=== PATIENT | female | born 1930 | race Caucasian/White ===

== ENCOUNTER → 2017-10-16 | Outpatient (CLI) | payer MEDICARE ==
[2017-10-16 08:07] LABS: ALBUMIN 4.1 g/dL (3.5-5.0); BUN/CREATININE RATIO 18.1 (6.0-26.0); POTASSIUM 4.3 mmol/L (3.6-5.0); TOTAL BILIRUBIN 0.5 mg/dL (0.2-1.3); TOTAL PROTEIN 7.3 g/dL (6.3-8.2)
== END ==
LOC: LAB 07:38
PROVIDERS: Family Medicine
DX: I10 Essential (primary) hypertension (principal); M19.90 Unspecified osteoarthritis, unspecified site; E78.00 Pure hypercholesterolemia, unspecified; R09.81 Nasal congestion

== ENCOUNTER → 2017-11-12 | Outpatient (CLI) | payer MEDICARE ==
[2017-11-12 12:09] LABS: URINE APPEARANCE CLOUDY; URINE COLOR YELLOW
[2017-11-12 12:10] LABS: URINE BILIRUBIN NEGATIVE (NEGATIVE); URINE BLOOD 50 ery/uL (NEGATIVE); URINE GLUCOSE NEGATIVE (NEGATIVE); URINE KETONE NEGATIVE (NEGATIVE); URINE LEUKOCYTE ESTERASE 2+ (NEGATIVE); URINE NITRATE POSITIVE (NEGATIVE); URINE PROTEIN(semi-quant) TRACE mg/dL (NEGATIVE); URINE UROBILINOGEN NORMAL (NORMAL); URINE WBC >50 /hpf (0-3)
== END ==
LOC: LAB 11:04
PROVIDERS: Family Medicine
DX: N39.0 Urinary tract infection, site not specified (principal); J30.9 Allergic rhinitis, unspecified; R09.81 Nasal congestion

== ENCOUNTER → 2017-11-20 | Outpatient (CLI) | payer MEDICARE | LOC: LAB 11:12 | DX: N39.0 Urinary tract infection, site not specified (principal); R10.9 Unspecified abdominal pain ==

== ENCOUNTER → 2017-11-28 | Outpatient (CLI) | payer MEDICARE | LOC: RAD 10:34 | PROVIDERS: Family Medicine | DX: S32.030A Wedge compression fracture of third lumbar vertebra, initial encounter for closed fracture (principal); N39.0 Urinary tract infection, site not specified; M25.551 Pain in right hip ==

== ENCOUNTER → 2018-02-02 | Outpatient (CLI) | payer MEDICARE | LOC: LAB 16:15 | DX: R30.0 Dysuria (principal); Z87.440 Personal history of urinary (tract) infections ==

== ENCOUNTER → 2018-02-09 | Outpatient (CLI) | payer MEDICARE ==
[2018-02-09 12:10] LABS: URINE APPEARANCE CLEAR; URINE COLOR YELLOW
[2018-02-09 12:11] LABS: URINE BILIRUBIN NEGATIVE (NEGATIVE); URINE BLOOD TRACE (NEGATIVE); URINE GLUCOSE NEGATIVE (NEGATIVE); URINE KETONE NEGATIVE (NEGATIVE); URINE LEUKOCYTE ESTERASE NEGATIVE (NEGATIVE); URINE NITRATE NEGATIVE (NEGATIVE); URINE PROTEIN(semi-quant) TRACE mg/dL (NEGATIVE); URINE UROBILINOGEN NORMAL (NORMAL)
== END ==
LOC: LAB 11:20
PROVIDERS: Family Medicine
DX: R31.9 Hematuria, unspecified (principal); R30.0 Dysuria; Z87.440 Personal history of urinary (tract) infections

== ENCOUNTER → 2018-05-28 | Outpatient (CLI) | payer MEDICARE | LOC: LAB 10:24 | DX: N39.0 Urinary tract infection, site not specified (principal) ==

== ENCOUNTER → 2018-06-03 | Outpatient (CLI) | payer MEDICARE | LOC: MAMMO 10:33 | DX: Z12.31 Encounter for screening mammogram for malignant neoplasm of breast (principal) ==

== ENCOUNTER → 2018-06-04 | Outpatient (CLI) | payer MEDICARE ==
[2018-06-04 09:51] LABS: URINE APPEARANCE HAZY; URINE BILIRUBIN NEGATIVE (NEGATIVE); URINE BLOOD 50 ery/uL (NEGATIVE); URINE COLOR YELLOW; URINE GLUCOSE NEGATIVE (NEGATIVE); URINE KETONE NEGATIVE (NEGATIVE); URINE LEUKOCYTE ESTERASE NEGATIVE (NEGATIVE); URINE NITRATE NEGATIVE (NEGATIVE); URINE PROTEIN(semi-quant) TRACE mg/dL (NEGATIVE); URINE UROBILINOGEN NORMAL (NORMAL)
== END ==
LOC: LAB 08:59
PROVIDERS: Family Medicine
DX: R35.0 Frequency of micturition (principal); N39.0 Urinary tract infection, site not specified; Z87.898 Personal history of other specified conditions

== ENCOUNTER → 2018-10-05 | Outpatient (CLI) | payer MEDICARE ==
[2018-10-05 10:04] LABS: URINE APPEARANCE CLOUDY; URINE COLOR ORANGE; URINE MUCUS PRESENT (NOT PRESENT); URINE WBC >50 /hpf (0-3)
== END ==
LOC: LAB 09:24
PROVIDERS: Family Medicine
DX: R30.9 Painful micturition, unspecified (principal); B96.1 Klebsiella pneumoniae [K. pneumoniae] as the cause of diseases classified elsewhere; R35.0 Frequency of micturition

== ENCOUNTER → 2018-10-14 | Outpatient (CLI) | payer MEDICARE ==
[2018-10-14 09:07] LABS: ALBUMIN 4.8 g/dL (3.5-5.0); CALCIUM 10.5 mg/dL (8.4-10.2); POTASSIUM 4.6 mmol/L (3.6-5.0); TOTAL BILIRUBIN 0.6 mg/dL (0.2-1.3); TOTAL PROTEIN 7.9 g/dL (6.3-8.2)
[2018-10-14 10:33] LABS: URINE APPEARANCE CLEAR; URINE BILIRUBIN NEGATIVE (NEGATIVE); URINE BLOOD 50 ery/uL (NEGATIVE); URINE COLOR YELLOW; URINE GLUCOSE NEGATIVE (NEGATIVE); URINE KETONE NEGATIVE (NEGATIVE); URINE LEUKOCYTE ESTERASE NEGATIVE (NEGATIVE); URINE MUCUS PRESENT (NOT PRESENT); URINE NITRATE NEGATIVE (NEGATIVE); URINE PROTEIN(semi-quant) TRACE mg/dL (NEGATIVE); URINE UROBILINOGEN NORMAL (NORMAL)
== END ==
LOC: LAB 08:31
PROVIDERS: Family Medicine
DX: N30.00 Acute cystitis without hematuria (principal); I10 Essential (primary) hypertension; E78.00 Pure hypercholesterolemia, unspecified

== ENCOUNTER 2019-01-29 11:54 | Emergency (ER) | payer MEDICARE ==
[~2019-01-29] VITALS: Ht 157.5 cm; Wt 53.2 kg
[2019-01-29] MEDS ORDERED: LISINOPRIL10 MG PO (12:16)
[2019-01-29] MEDS ORDERED: FLUTICASON0.05 MG/AC NS (12:16)
[2019-01-29] MEDS ORDERED: ATORVASTATIN CA40 MG PO (12:16)
[2019-01-29] MEDS ORDERED: PRILOSEC OTC20 MG PO (12:26)
[2019-01-29] MEDS ORDERED: B-121000 MCG PO (12:28)
[2019-01-29] MEDS ORDERED: STOOL SOFTENER1 TAB PO (12:28)
[2019-01-29] MEDS ORDERED: MULTIVITAMIN1 SGL PO (12:30)
[2019-01-29] MEDS ORDERED: CALCIUM 600600 MG PO (12:30)
[2019-01-29 14:00] LABS: EOS % 0.3 % (1.0-5.0); HEMATOCRIT 33.9 % (37.0-47.0); HEMOGLOBIN 10.9 g/dL (12.5-16.0); LYMPH# 1.2 (1.50-4.00); MEAN CELL VOLUME 100 fl (78-100); MEAN CORPUSCULAR HEMOGLOBIN 32 pg (27-31); MEAN CORPUSCULAR HGB CONC 32 g/dL (33-37); MONO # 0.6 (0.20-0.80); NEU # 5.7 (1.40-6.50); PLATELET COUNT 267 K/mm3 (130-400); RED BLOOD COUNT 3.38 M/mm3 (4.10-5.30); RED CELL DISTRIBUTION WIDTH 12.4 % (11.5-14.5); WHITE BLOOD COUNT 7.5 K/mm3 (4.8-10.8)
[2019-01-29 14:12] LABS: ALBUMIN 4.3 g/dL (3.4-4.8)
[2019-01-29 14:13] LABS: CALCIUM 10.4 mg/dL (8.3-10.5); PROTHROMBIN TIME 10.6 SECONDS (9.0-12.0)
[2019-01-29 14:15] LABS: GLUCOSE 96 mg/dL (65-105); TOTAL PROTEIN 7.5 g/dL (6.2-8.1)
[2019-01-29 14:16] LABS: CARBON DIOXIDE 24 mmol/L (23-31); TOTAL BILIRUBIN 0.3 mg/dL (0.2-1.2)
[2019-01-29 14:20] LABS: AST-SGOT 26 U/L (5-34)
[2019-01-29 14:22] LABS: ALT/SGPT 26 U/L (0-55)
[2019-01-29 14:28] LABS: TROPONIN-I < 0.03 ng/mL (<0.030)
[2019-01-29 14:49] LABS: POTASSIUM 4.2 mmol/L (3.5-5.1); SODIUM 137 mmol/L (136-145)
[2019-01-29] MEDS ORDERED: NORCO 325 MG-51 TA1 PO (15:25)
[2019-01-29 15:35] VITALS: BP 146/67
[2019-01-29 17:26] LABS: URINE APPEARANCE HAZY; URINE COLOR YELLOW
[2019-01-29 17:27] LABS: PH-URINE 5.5 (5.0 - 8.0); URINE BILIRUBIN NEGATIVE (NEGATIVE); URINE BLOOD 50 ery/uL (NEGATIVE); URINE GLUCOSE NEGATIVE (NEGATIVE); URINE KETONE NEGATIVE (NEGATIVE); URINE NITRATE NEGATIVE (NEGATIVE); URINE PROTEIN(semi-quant) TRACE mg/dL (NEGATIVE); URINE UROBILINOGEN NORMAL (NORMAL)
[2019-01-29 17:28] LABS: URINE LEUKOCYTE ESTERASE 1+ (NEGATIVE); URINE WBC 16-30 /hpf (0-3)
== END 2019-01-29 15:37 | disposition home or self-care (01) ==
LOC: ED 11:54
PROVIDERS: Nurse Practitioner Primary Care
DX: S32.591A Other specified fracture of right pubis, initial encounter for closed fracture (principal); I10 Essential (primary) hypertension; K21.9 Gastro-esophageal reflux disease without esophagitis; Z79.51 Long term (current) use of inhaled steroids; W01.0XXA Fall on same level from slipping, tripping and stumbling without subsequent striking against object, initial encounter; Y92.007 Garden or yard of unspecified non-institutional (private) residence as the place of occurrence of the external cause

== ENCOUNTER → 2019-02-15 | Outpatient (CLI) | payer MEDICARE ==
[2019-01-29 15:35] VITALS: BP 146/67
[~2019-02-15] MED LIST: ACETAMINOPHEN325 M1 PO; ATORVASTATIN CA40 MG PO; B-121000 MCG PO; BACTRIM DS 8001 TAB PO; CALCIUM500 M1; CRANBERRY500 M3; FLUTICASON0.05 MG/AC NS; GOOD NEIGHBOR200 M3 PO; LISINOPRIL10 MG PO; MULTI-VITAMINS1 TA1 PO; NEXIUM 24HR20 M2 PO; NORCO 325 MG-51 TA1 PO; PRILOSEC OTC20 MG PO; STOOL SOFTENER1 TAB PO
[2019-02-15 13:55] LABS: URINE APPEARANCE HAZY; URINE COLOR YELLOW
[2019-02-15 13:56] LABS: URINE BILIRUBIN NEGATIVE (NEGATIVE); URINE BLOOD TRACE (NEGATIVE); URINE GLUCOSE NEGATIVE (NEGATIVE); URINE KETONE NEGATIVE (NEGATIVE); URINE LEUKOCYTE ESTERASE 1+ (NEGATIVE); URINE NITRATE NEGATIVE (NEGATIVE); URINE PROTEIN(semi-quant) TRACE mg/dL (NEGATIVE); URINE UROBILINOGEN NORMAL (NORMAL); URINE WBC >50 /hpf (0-3)
[2019-02-15 13:57] LABS: URINE MUCUS PRESENT (NOT PRESENT)
== END ==
LOC: LAB 13:19
PROVIDERS: Family Medicine
DX: R30.9 Painful micturition, unspecified (principal)

== ENCOUNTER → 2019-02-22 | Outpatient (CLI) | payer MEDICARE ==
[2019-01-29 15:35] VITALS: BP 146/67
[2019-02-22 14:21] LABS: URINE APPEARANCE HAZY; URINE BILIRUBIN NEGATIVE (NEGATIVE); URINE BLOOD NEGATIVE (NEGATIVE); URINE COLOR YELLOW; URINE GLUCOSE NEGATIVE (NEGATIVE); URINE KETONE NEGATIVE (NEGATIVE); URINE LEUKOCYTE ESTERASE NEGATIVE (NEGATIVE); URINE NITRATE NEGATIVE (NEGATIVE); URINE PROTEIN(semi-quant) TRACE mg/dL (NEGATIVE); URINE UROBILINOGEN NORMAL (NORMAL)
== END ==
LOC: LAB 13:14
PROVIDERS: Family Medicine
DX: N39.0 Urinary tract infection, site not specified (principal)

== ENCOUNTER 2019-02-24 12:29 | Emergency (ER) | payer MEDICARE ==
[~2019-02-24 12:29] MED LIST changes: -ACETAMINOPHEN325 M1 PO; -BACTRIM DS 8001 TAB PO; -CRANBERRY500 M3; -GOOD NEIGHBOR200 M3 PO; -NEXIUM 24HR20 M2 PO
[2019-02-24] MEDS ORDERED: BACTRIM DS 8001 TAB PO (13:15)
[2019-02-24] MEDS ORDERED: NEXIUM 24HR20 M2 PO (13:16)
[2019-02-24] MEDS ORDERED: ACETAMINOPHEN325 M1 PO (13:17)
[2019-02-24] MEDS ORDERED: CRANBERRY500 M3 (13:18)
[2019-02-24] MEDS ORDERED: GOOD NEIGHBOR200 M3 PO (13:20)
[2019-02-24 13:43] LABS: URINE APPEARANCE CLEAR; URINE BILIRUBIN NEGATIVE (NEGATIVE); URINE BLOOD 50 ery/uL (NEGATIVE); URINE COLOR YELLOW; URINE GLUCOSE NEGATIVE (NEGATIVE); URINE KETONE NEGATIVE (NEGATIVE); URINE LEUKOCYTE ESTERASE NEGATIVE (NEGATIVE); URINE MUCUS PRESENT (NOT PRESENT); URINE NITRATE NEGATIVE (NEGATIVE); URINE PROTEIN(semi-quant) TRACE mg/dL (NEGATIVE); URINE UROBILINOGEN NORMAL (NORMAL)
[2019-02-24 14:06] VITALS: BP 122/56
== END 2019-02-24 14:06 | disposition other institution (70) ==
LOC: ED 12:29
PROVIDERS: Physician Assistant
DX: E87.5 Hyperkalemia (principal); N28.9 Disorder of kidney and ureter, unspecified; E86.0 Dehydration; M25.552 Pain in left hip; I10 Essential (primary) hypertension; Z90.710 Acquired absence of both cervix and uterus; Z96.651 Presence of right artificial knee joint; Z79.51 Long term (current) use of inhaled steroids
CPT/HCPCS: J2405

== ENCOUNTER 2019-02-24 13:26 | Inpatient (IN) | payer MEDICARE ==
[~2019-02-24] VITALS: Ht 154.9 cm; Wt 50.8 kg
[~2019-02-24 13:26] MED LIST changes: +ACETAMINOPHEN325 M1 PO; +BACTRIM DS 8001 TAB PO; +CRANBERRY500 M3; +GOOD NEIGHBOR200 M3 PO; +NEXIUM 24HR20 M2 PO
[2019-02-24 14:42] VITALS: BP 122/56
[2019-02-24 14:44] VITALS: BP 122/56
[2019-02-24 19:01] VITALS: BP 112/67
[2019-02-24 23:30] VITALS: BP 126/67
[2019-02-25] VITALS (9 sets, daily range): BP systolic 93–115; BP diastolic 45–61
[2019-02-25 06:30] LABS: CALCIUM 8.9 mg/dL (8.3-10.5)
[2019-02-26 03:07] VITALS: BP 91/46
[2019-02-26 06:28] VITALS: BP 105/60
[2019-02-26 08:04] LABS: POTASSIUM 4.8 mmol/L (3.5-5.1)
[2019-02-26 08:05] LABS: CALCIUM 8.8 mg/dL (8.3-10.5)
[2019-02-26 11:21] VITALS: BP 111/63
[2019-02-26 15:00] VITALS: BP 116/63
[2019-02-26 19:07] VITALS: BP 101/57
[2019-02-26 22:32] VITALS: BP 147/70
[2019-02-27 02:42] VITALS: BP 110/67
[2019-02-27 06:04] VITALS: BP 121/72
[2019-02-27 10:51] VITALS: BP 106/61
[2019-02-27 15:15] VITALS: BP 100/59
[2019-02-27 18:53] VITALS: BP 130/76
[2019-02-27 23:30] VITALS: BP 100/63
[2019-02-28] VITALS (7 sets, daily range): BP systolic 95–145; BP diastolic 57–82
[2019-03-01] VITALS (8 sets, daily range): BP systolic 107–124; BP diastolic 63–74
[2019-03-01 09:42] LABS: EOS # 0.1 (0.04-0.40); EOS % 1.4 % (1.0-5.0); HEMATOCRIT 31.1 % (37.0-47.0); HEMOGLOBIN 9.7 g/dL (12.5-16.0); LYMPH# 0.9 (1.50-4.00); MEAN CELL VOLUME 100 fl (78-100); MEAN CORPUSCULAR HEMOGLOBIN 31 pg (27-31); MEAN CORPUSCULAR HGB CONC 31 g/dL (33-37); MEAN PLATELET VOLUME 9.5 fl (7.4-10.4); MONO # 0.5 (0.20-0.80); NEU # 5.5 (1.40-6.50); PLATELET COUNT 327 K/mm3 (130-400); RED BLOOD COUNT 3.11 M/mm3 (4.10-5.30); RED CELL DISTRIBUTION WIDTH 12.4 % (11.5-14.5); WHITE BLOOD COUNT 7.1 K/mm3 (4.8-10.8)
[2019-03-01 09:49] LABS: POTASSIUM 4.3 mmol/L (3.5-5.1)
[2019-03-01 09:50] LABS: CALCIUM 9.7 mg/dL (8.3-10.5)
[2019-03-02] VITALS (7 sets, daily range): BP systolic 117–135; BP diastolic 57–76
[2019-03-02 22:00] LABS: PH-URINE 5.5 (5.0 - 8.0); URINE APPEARANCE HAZY; URINE COLOR YELLOW
[2019-03-02 22:01] LABS: URINE BILIRUBIN NEGATIVE (NEGATIVE); URINE BLOOD TRACE (NEGATIVE); URINE GLUCOSE NEGATIVE (NEGATIVE); URINE KETONE NEGATIVE (NEGATIVE); URINE LEUKOCYTE ESTERASE TRACE (NEGATIVE); URINE NITRATE POSITIVE (NEGATIVE); URINE PROTEIN(semi-quant) TRACE mg/dL (NEGATIVE); URINE UROBILINOGEN NORMAL (NORMAL)
[2019-03-03 02:56] VITALS: BP 165/70
[2019-03-03 06:35] VITALS: BP 130/66; BP 165/70
[2019-03-03 11:12] VITALS: BP 104/62
[2019-03-03 14:52] VITALS: BP 116/67
[2019-03-03 15:35] LABS: POTASSIUM 4.8 mmol/L (3.5-5.1)
[2019-03-03 15:36] LABS: CALCIUM 9.5 mg/dL (8.3-10.5)
[2019-03-03 18:31] VITALS: BP 107/66
[2019-03-03 23:00] VITALS: BP 123/64
[2019-03-04 03:28] VITALS: BP 125/73
[2019-03-04 06:20] VITALS: BP 127/69
[2019-03-04 11:07] VITALS: BP 109/68
[2019-03-04 13:01] LABS: POTASSIUM 4.5 mmol/L (3.5-5.1)
[2019-03-04 13:02] LABS: CALCIUM 9.4 mg/dL (8.3-10.5)
[2019-03-04 15:23] VITALS: BP 100/64
[2019-03-04 18:26] VITALS: BP 115/72
[2019-03-04 23:15] VITALS: BP 151/71
[2019-03-05 02:50] VITALS: BP 136/71
[2019-03-05 06:22] VITALS: BP 149/70; BP 149/76
[2019-03-05] MEDS ORDERED: TORADOL IV (07:04)
[2019-03-05] MEDS ORDERED: SENNA-TIME S 501 TAB PO (07:05)
[2019-03-05] MEDS ORDERED: Lidocaine 4% Patch TP (07:06)
[2019-03-05] MEDS ORDERED: MOBIC15 M1 PO (07:09)
[2019-03-05 10:09] VITALS: BP 149/70
== END 2019-03-05 10:45 | DRG 683 ==
LOC: MED/SURG 13:26
PROVIDERS: Family Medicine; Nurse Practitioner Family; ADMIT Physician Assistant
DX: N17.9 Acute kidney failure, unspecified (principal); E87.1 Hypo-osmolality and hyponatremia; E86.0 Dehydration; N18.9 Chronic kidney disease, unspecified; E87.5 Hyperkalemia; K59.00 Constipation, unspecified; R53.81 Other malaise; Z66 Do not resuscitate; K80.20 Calculus of gallbladder without cholecystitis without obstruction; R33.9 Retention of urine, unspecified; S32.502D Unspecified fracture of left pubis, subsequent encounter for fracture with routine healing; S32.501D Unspecified fracture of right pubis, subsequent encounter for fracture with routine healing; S32.10XD Unspecified fracture of sacrum, subsequent encounter for fracture with routine healing; W19.XXXD Unspecified fall, subsequent encounter
CPT/HCPCS: J1650; J1885; J7030; J7040; Q9967

== ENCOUNTER → 2019-02-24 | Outpatient (CLI) | payer MEDICARE ==
[2019-01-29 15:35] VITALS: BP 146/67
[2019-02-24 12:21] LABS: POTASSIUM 5.4 mmol/L (3.5-5.1); SODIUM 126 mmol/L (136-145)
[2019-02-24 12:22] LABS: CALCIUM 10.5 mg/dL (8.3-10.5); GLUCOSE 92 mg/dL (65-105)
[2019-02-24 12:24] LABS: CARBON DIOXIDE 21 mmol/L (23-31)
[2019-02-24 12:35] LABS: TROPONIN-I < 0.03 ng/mL (<0.030); URINE APPEARANCE HAZY; URINE BILIRUBIN NEGATIVE (NEGATIVE); URINE BLOOD 50 ery/uL (NEGATIVE); URINE COLOR YELLOW; URINE GLUCOSE NEGATIVE (NEGATIVE); URINE KETONE NEGATIVE (NEGATIVE); URINE LEUKOCYTE ESTERASE TRACE (NEGATIVE); URINE NITRATE NEGATIVE (NEGATIVE); URINE PROTEIN(semi-quant) 1+ mg/dL (NEGATIVE); URINE UROBILINOGEN NORMAL (NORMAL)
[2019-02-24 12:40] LABS: ALBUMIN 4.4 g/dL (3.4-4.8)
[2019-02-24 12:43] LABS: TOTAL PROTEIN 7.6 g/dL (6.2-8.1)
[2019-02-24 12:45] LABS: HEMATOCRIT 32.4 % (37.0-47.0); HEMOGLOBIN 10.5 g/dL (12.5-16.0); MEAN CELL VOLUME 98 fl (78-100); MEAN CORPUSCULAR HEMOGLOBIN 32 pg (27-31); MEAN CORPUSCULAR HGB CONC 32 g/dL (33-37); MEAN PLATELET VOLUME 10.1 fl (7.4-10.4); PLATELET COUNT 323 K/mm3 (130-400); RED BLOOD COUNT 3.32 M/mm3 (4.10-5.30); RED CELL DISTRIBUTION WIDTH 12.4 % (11.5-14.5); TOTAL BILIRUBIN 0.3 mg/dL (0.2-1.2); WHITE BLOOD COUNT 7.7 K/mm3 (4.8-10.8)
[2019-02-24 12:49] LABS: ALT/SGPT 21 U/L (0-55); AST-SGOT 28 U/L (5-34)
[2019-02-24 12:59] LABS: LYMPHOCYTE 15 % (20-51); MONOCYTE 4 % (3-10); NEUTROPHILS 80 % (42-75)
== END ==
LOC: LAB 11:55
PROVIDERS: Family Medicine
DX: N39.0 Urinary tract infection, site not specified (principal); E78.00 Pure hypercholesterolemia, unspecified; I10 Essential (primary) hypertension; R10.13 Epigastric pain; R11.0 Nausea

== ENCOUNTER → 2019-04-14 | Outpatient (CLI) | payer MEDICARE ==
[~2019-04-14] MED LIST changes: +Lidocaine 4% Patch TP; +MOBIC15 M1 PO; +SENNA-TIME S 501 TAB PO; +TORADOL IV
[2019-04-14 11:14] LABS: URINE APPEARANCE CLOUDY; URINE BILIRUBIN NEGATIVE (NEGATIVE); URINE BLOOD 50 ery/uL (NEGATIVE); URINE COLOR YELLOW; URINE GLUCOSE NEGATIVE (NEGATIVE); URINE KETONE NEGATIVE (NEGATIVE); URINE LEUKOCYTE ESTERASE 1+ (NEGATIVE); URINE MUCUS PRESENT (NOT PRESENT); URINE NITRATE NEGATIVE (NEGATIVE); URINE PROTEIN(semi-quant) 1+ mg/dL (NEGATIVE); URINE UROBILINOGEN NORMAL (NORMAL); URINE WBC 31-50 /hpf (0-3)
== END ==
LOC: LAB 10:02
PROVIDERS: Family Medicine
DX: N39.0 Urinary tract infection, site not specified (principal); R30.9 Painful micturition, unspecified

== ENCOUNTER → 2019-04-27 | Outpatient (CLI) | payer MEDICARE ==
[2019-04-27 11:01] LABS: URINE APPEARANCE CLEAR; URINE BILIRUBIN NEGATIVE (NEGATIVE); URINE BLOOD 50 ery/uL (NEGATIVE); URINE COLOR YELLOW; URINE GLUCOSE NEGATIVE (NEGATIVE); URINE KETONE NEGATIVE (NEGATIVE); URINE LEUKOCYTE ESTERASE NEGATIVE (NEGATIVE); URINE NITRATE NEGATIVE (NEGATIVE); URINE PROTEIN(semi-quant) 1+ mg/dL (NEGATIVE); URINE UROBILINOGEN NORMAL (NORMAL)
== END ==
LOC: LAB 09:59
PROVIDERS: Family Medicine
DX: N39.0 Urinary tract infection, site not specified (principal)

== ENCOUNTER → 2019-05-26 | Outpatient (CLI) | payer MEDICARE | LOC: MAMMO 09:54 | DX: Z12.31 Encounter for screening mammogram for malignant neoplasm of breast (principal) ==

== ENCOUNTER → 2019-06-24 | Outpatient (CLI) | payer MEDICARE ==
[2019-06-24 11:52] LABS: URINE APPEARANCE CLOUDY; URINE BILIRUBIN NEGATIVE (NEGATIVE); URINE COLOR YELLOW; URINE GLUCOSE NEGATIVE (NEGATIVE); URINE KETONE NEGATIVE (NEGATIVE); URINE PROTEIN(semi-quant) TRACE mg/dL (NEGATIVE); URINE UROBILINOGEN NORMAL (NORMAL)
[2019-06-24 11:53] LABS: URINE BLOOD 50 ery/uL (NEGATIVE); URINE LEUKOCYTE ESTERASE 2+ (NEGATIVE); URINE NITRATE POSITIVE (NEGATIVE); URINE WBC >50 /hpf (0-3)
== END ==
LOC: LAB 10:34
PROVIDERS: Family Medicine
DX: N39.0 Urinary tract infection, site not specified (principal)

== ENCOUNTER → 2019-06-30 | Outpatient (CLI) | payer MEDICARE ==
[2019-06-30 13:54] LABS: URINE APPEARANCE CLOUDY; URINE BILIRUBIN NEGATIVE (NEGATIVE); URINE BLOOD 50 ery/uL (NEGATIVE); URINE COLOR YELLOW; URINE GLUCOSE NEGATIVE (NEGATIVE); URINE KETONE NEGATIVE (NEGATIVE); URINE LEUKOCYTE ESTERASE 1+ (NEGATIVE); URINE MUCUS PRESENT (NOT PRESENT); URINE NITRATE POSITIVE (NEGATIVE); URINE PROTEIN(semi-quant) TRACE mg/dL (NEGATIVE); URINE UROBILINOGEN NORMAL (NORMAL); URINE WBC >50 /hpf (0-3)
== END ==
LOC: LAB 13:36
PROVIDERS: Family Medicine
DX: N30.80 Other cystitis without hematuria (principal)

== ENCOUNTER → 2019-09-13 | Outpatient (CLI) | payer MEDICARE ==
[2019-09-13 10:13] LABS: ALBUMIN 4.7 g/dL (3.4-4.8); POTASSIUM 4.1 mmol/L (3.5-5.1)
[2019-09-13 10:14] LABS: CALCIUM 10.4 mg/dL (8.3-10.5)
[2019-09-13 10:15] LABS: TOTAL PROTEIN 7.4 g/dL (6.2-8.1)
[2019-09-13 10:17] LABS: TOTAL BILIRUBIN 0.3 mg/dL (0.2-1.2)
== END ==
LOC: LAB 09:41
PROVIDERS: Internal Medicine Nephrology
DX: N18.4 Chronic kidney disease, stage 4 (severe) (principal)

== ENCOUNTER → 2020-04-21 | Outpatient (CLI) | payer MEDICARE ==
[2020-04-21 09:58] LABS: ALBUMIN 4.6 g/dL (3.4-4.8)
[2020-04-21 10:00] LABS: TOTAL PROTEIN 7.5 g/dL (6.2-8.1)
[2020-04-21 10:02] LABS: TOTAL BILIRUBIN 0.4 mg/dL (0.2-1.2)
[2020-04-21 10:06] LABS: DIRECT BILIRUBIN 0.2 mg/dL (0.0-0.5)
== END ==
LOC: LAB 08:13
PROVIDERS: Family Medicine
DX: E78.00 Pure hypercholesterolemia, unspecified (principal)

== ENCOUNTER → 2020-05-16 | Outpatient (CLI) | payer MEDICARE ==
[2020-05-16 13:20] LABS: POTASSIUM 3.8 mmol/L (3.5-5.1)
[2020-05-16 13:21] LABS: CALCIUM 9.9 mg/dL (8.3-10.5)
== END ==
LOC: LAB 12:56
PROVIDERS: Internal Medicine Nephrology
DX: N18.4 Chronic kidney disease, stage 4 (severe) (principal)

== ENCOUNTER → 2020-06-07 | Outpatient (CLI) | payer MEDICARE | LOC: MAMMO 05-31 11:30 | DX: Z12.31 Encounter for screening mammogram for malignant neoplasm of breast (principal) ==

== ENCOUNTER → 2021-01-09 | Outpatient (CLI) | payer MEDICARE ==
[2021-01-09 10:21] LABS: POTASSIUM 4.2 mmol/L (3.5-5.1)
== END ==
LOC: LAB 09:49
PROVIDERS: Internal Medicine Nephrology
DX: I12.9 Hypertensive chronic kidney disease with stage 1 through stage 4 chronic kidney disease, or unspecified chronic kidney disease (principal); N18.4 Chronic kidney disease, stage 4 (severe); E87.1 Hypo-osmolality and hyponatremia

== ENCOUNTER → 2021-06-12 | Outpatient (CLI) | payer MEDICARE | LOC: MAMMO 12:51 | DX: Z12.31 Encounter for screening mammogram for malignant neoplasm of breast (principal) ==

== ENCOUNTER → 2021-07-19 | Outpatient (CLI) | payer MEDICARE | LOC: LAB 11:01 | DX: N39.0 Urinary tract infection, site not specified (principal) ==

== ENCOUNTER → 2021-07-30 | Outpatient (CLI) | payer MEDICARE ==
[2021-07-30 11:15] LABS: URINE APPEARANCE CLEAR; URINE BILIRUBIN NEGATIVE (NEGATIVE); URINE BLOOD TRACE (NEGATIVE); URINE COLOR YELLOW; URINE GLUCOSE NEGATIVE (NEGATIVE); URINE KETONE NEGATIVE (NEGATIVE); URINE LEUKOCYTE ESTERASE 1+ (NEGATIVE); URINE NITRATE NEGATIVE (NEGATIVE); URINE PROTEIN(semi-quant) TRACE mg/dL (NEGATIVE); URINE UROBILINOGEN NORMAL (NORMAL)
== END ==
LOC: LAB 09:40
PROVIDERS: Family Medicine
DX: R30.0 Dysuria (principal); Z87.448 Personal history of other diseases of urinary system

== ENCOUNTER → 2021-08-29 | Outpatient (CLI) | payer MEDICARE ==
[2021-08-29 09:40] LABS: URINE APPEARANCE CLEAR; URINE BILIRUBIN NEGATIVE (NEGATIVE); URINE BLOOD TRACE (NEGATIVE); URINE COLOR YELLOW; URINE GLUCOSE NEGATIVE (NEGATIVE); URINE KETONE NEGATIVE (NEGATIVE); URINE LEUKOCYTE ESTERASE 1+ (NEGATIVE); URINE NITRATE NEGATIVE (NEGATIVE); URINE PROTEIN(semi-quant) TRACE (NEGATIVE); URINE UROBILINOGEN NORMAL (NORMAL)
== END ==
LOC: LAB 09:20
PROVIDERS: Family Medicine
DX: R30.9 Painful micturition, unspecified (principal)

== ENCOUNTER → 2021-09-10 | Outpatient (CLI) | payer MEDICARE ==
[2021-09-10 11:43] LABS: URINE APPEARANCE HAZY; URINE BILIRUBIN 1+ (NEGATIVE); URINE COLOR YELLOW; URINE GLUCOSE NEGATIVE (NEGATIVE); URINE KETONE NEGATIVE (NEGATIVE); URINE NITRATE POSITIVE (NEGATIVE); URINE PROTEIN(semi-quant) TRACE (NEGATIVE); URINE UROBILINOGEN NORMAL (NORMAL)
[2021-09-10 11:44] LABS: URINE BLOOD 50 ery/uL (NEGATIVE); URINE LEUKOCYTE ESTERASE 1+ (NEGATIVE); URINE WBC 16-30 /hpf (0-3)
[2021-09-10 12:44] LABS: BASO # 0.03 K/mm3 (0.02-0.10); EOS # 0.03 K/mm3 (0.04-0.40); EOS % 0.4 % (1.0-5.0); HEMATOCRIT 33.7 % (37.0-47.0); HEMOGLOBIN 10.8 g/dL (12.5-16.0); LYMPH# 1.71 K/mm3 (1.50-4.00); MEAN CELL VOLUME 104 fl (78-100); MEAN CORPUSCULAR HEMOGLOBIN 33 pg (27-31); MEAN CORPUSCULAR HGB CONC 32 g/dL (33-37); MEAN PLATELET VOLUME 10.3 fl (7.4-10.4); MONO # 0.55 K/mm3 (0.20-0.80); NEU # 4.76 K/mm3 (1.40-6.50); PLATELET COUNT 314 K/mm3 (130-400); RED BLOOD COUNT 3.24 M/mm3 (4.10-5.30); RED CELL DISTRIBUTION WIDTH 12.2 % (11.5-14.5); WHITE BLOOD COUNT 7.1 K/mm3 (4.8-10.8)
[2021-09-10 12:50] LABS: ALBUMIN 4.5 g/dL (3.4-4.8)
[2021-09-10 12:51] LABS: POTASSIUM 4.2 mmol/L (3.5-5.1)
[2021-09-10 12:52] LABS: CALCIUM 9.8 mg/dL (8.3-10.5)
== END ==
LOC: LAB 10:16
PROVIDERS: Family Medicine; Internal Medicine Nephrology
DX: N39.0 Urinary tract infection, site not specified (principal); N18.4 Chronic kidney disease, stage 4 (severe); R30.9 Painful micturition, unspecified

== ENCOUNTER → 2021-09-17 | Outpatient (CLI) | payer MEDICARE ==
[2021-09-17 11:00] LABS: URINE APPEARANCE CLOUDY; URINE COLOR YELLOW
[2021-09-17 11:01] LABS: URINE BILIRUBIN NEGATIVE (NEGATIVE); URINE BLOOD TRACE (NEGATIVE); URINE GLUCOSE NEGATIVE (NEGATIVE); URINE KETONE NEGATIVE (NEGATIVE); URINE LEUKOCYTE ESTERASE TRACE (NEGATIVE); URINE NITRATE NEGATIVE (NEGATIVE); URINE PROTEIN(semi-quant) TRACE (NEGATIVE); URINE UROBILINOGEN NORMAL (NORMAL); URINE WBC 0-1 /hpf (0-3)
== END ==
LOC: LAB 09:38
PROVIDERS: Family Medicine
DX: N39.0 Urinary tract infection, site not specified (principal)